=== PATIENT | male | born 1965 | race Caucasian/White ===

== ENCOUNTER 2021-07-23 03:37 | Inpatient (IN) | payer OTHER, SELFPAY ==
[~2021-07-23] VITALS: Ht 180.3 cm; Wt 129.7 kg
--- NOTE | 2021-07-23 03:39 | NUR ---
PT BROUGHT TO BED 11 VIA STARR FERNANDEZ
[2021-07-23 03:40] VITALS: BP 223/82
--- NOTE | 2021-07-23 03:40 | NUR ---
56 YO M BIBA WITH C/C OF SOB XT, WORSENING TODAY. PT SATING AT 95%RA. INCREASED WORK OF BREATHING OBSERVED. PT STATES HE MISSED DIALYSIS THIS MONDAY D/T HAVING A COUGH. SHUNT IS ON RIGHT UPPER ARM. DIALYSIS MON-MON-MON. PT STATES THE LAST TIME HE MISSED THE SAME THING HAPPENED AND FELT BETTER AFTER DIALYSIS. AT BEDSIDE ASSESSING PT. PT PLACED ON MONITOR AND IN GOWN. HX:RF AND HTN SURGERIES: GALLBLADDER, AMBULTATION OF LEFT FOOT BIG TOE
[2021-07-23] MEDS ORDERED: NITROGLYCERIN 50 MG/D5W PREMIX 250 ML IV ONE (03:45)
[2021-07-23] MEDS ORDERED: NITROGLYCERIN 0.4 MG TAB SL ONE (03:45)
[2021-07-23 04:06] VITALS: BP 186/106
[2021-07-23 04:09] LABS: BASOPHILS # (AUTO) 0.3 K/uL (0.00-0.22); EOSINOPHILS # (AUTO) 0.3 K/uL (0-0.4); EOSINOPHILS % (AUTO) 4.8 % (0.0-4.0); HEMATOCRIT 38.4 % (36-52); HEMOGLOBIN 12.8 g/dL (12.0-18.0); LYMPHOCYTES # (AUTO) 1.4 K/uL (2.0-11.5); LYMPHOCYTES % (AUTO) 24.1 % (20.5-51.1); MEAN CORPUSCULAR HEMOGLOBIN 32 pg (27-31); MEAN CORPUSCULAR HGB CONC 33 g/dL (33-37); MEAN CORPUSCULAR VOLUME 94.7 fL (80-94); MONOCYTES # (AUTO) 0.3 K/uL (0.8-1.0); NEUTROPHILS # (AUTO) 3.5 K/uL (1.8-7.7); NEUTROPHILS % (AUTO) 61.1 % (42.2-75.2); PLATELET COUNT (AUTO) 163 K/uL (140-450); RED BLOOD CELL COUNT(AUTO) 4.06 MIL/uL (4.20-6.10); WHITE BLOOD COUNT (AUTO) 5.8 K/uL (4.8-10.8)
--- NOTE | 2021-07-23 04:13 | NUR ---
PT PLACED ON NIV / f16 100% FOR INCR WOB + SOB PT APPEARS TO BE TOLERATING WELL AND SPO2 INCR TO 100% 5 MIN POST INITIATION BIPAP PLUGGED INTO RED OUTLET W/ ALARMS ON AND AUDIBLE WILL CONTINUE TO MONITOR
--- NOTE | 2021-07-23 04:22 | NUR ---
PT IS SITTING BACK IN BED. PT EXPRESSES RELIEF. STATES HE FEELS MUCH BETTER THAN WHEN HE CAME IN. RR DECRESED TO 19, WORK OF BREATHING ALSO DECREASED. PT MADE COMFORTABLE, GIVEN BLANKET. BED LOCKED IN LOWEST POSITION, SIDE RAILS X1.
--- NOTE | 2021-07-23 04:27 | NUR ---
PT UNABLE TO RECALL MANUFACTURING CLERK. STATES HE HAS DIALYSIS AT [facility].
[2021-07-23] MEDS ORDERED: ENALAPRILAT 2.5 MG/2 ML VIAL IVP ONE (04:35)
[2021-07-23 04:48] LABS: PROTHROMBIN TIME 10.7 secs (10.8-13.4)
[2021-07-23 04:51] LABS: ALBUMIN 3.4 g/dL (3.4-5.0); CARBON DIOXIDE 19.6 mmol/L (21-32); POTASSIUM 4.6 mmol/L (3.5-5.1); TOTAL BILIRUBIN 0.3 mg/dL (0.0-1.0)
--- NOTE | 2021-07-23 05:05 | NUR ---
PT IS SITTIG UP IN BED, PT STATES HE FEELS BETTER THAT WAY.
[2021-07-23 05:10] LABS: CREATININE 14.9 mg/dL (0.6-1.3)
[2021-07-23 05:23] VITALS: BP 120/6
--- NOTE | 2021-07-23 05:25 | NUR ---
BP 120/64 HR:71, NIRO DRIP D/C PER NICOLA VAZQUEZ. Addendum: 07/23/21 at 0526 by [facility] BP 120/64 HR:71, NITRO DRIP D/C PER NICOLA VAZQUEZ.
--- NOTE | 2021-07-23 05:27 | NUR ---
NIV WAS PLACED ON STDBY @ BEDSIDE
--- NOTE | 2021-07-23 05:39 | NUR ---
ELIJAH HENRY [phone]
--- NOTE | 2021-07-23 06:16 | NUR ---
UNABLE TO RECONCILE MEDICATION, PT DOES NOT REMEMBER MEDICATIONS.
--- NOTE | 2021-07-23 06:20 | NUR ---
PT TAKEN TO BED 10. Addendum: 07/23/21 at 0649 by [facility] 10A
[2021-07-23] MEDS ORDERED: ZOLPIDEM 10 MG TAB PO PRN (06:35)
[2021-07-23] MEDS ORDERED: MAG SULF 2000 MG/WATER PREMIX 50 ML IV PRN (06:35)
[2021-07-23] MEDS ORDERED: AZITHROMYCIN 250 MG TAB PO SCH (06:35)
[2021-07-23] MEDS ORDERED: DOCUSATE SODIUM 100 MG GELCAP PO PRN (06:35)
[2021-07-23] MEDS ORDERED: POTASSIUM CHLORIDE 10 MEQ TABER PO PRN (06:35)
[2021-07-23] MEDS ORDERED: MORPHINE SULFATE 2 MG/ML SYR IVP PRN (06:35)
[2021-07-23] MEDS ORDERED: ONDANSETRON 4 MG/2 ML VIAL IVP PRN (06:35)
[2021-07-23] MEDS ORDERED: LORazepam 2 MG/ML VIAL IVP PRN (06:35)
--- NOTE | 2021-07-23 06:40 | NUR ---
PT IS SITTING UP IN BED. VSS. PT IN STABLE CONDITION. ALL NEEDS MET AT THIS TIME.
--- NOTE | 2021-07-23 07:13 | NUR ---
PT HAD BM.
--- NOTE | 2021-07-23 07:21 | NUR ---
Pt report given to LYLE ACEVEDO. Transfer of care at this time.
--- NOTE | 2021-07-23 07:21 | NUR ---
REPORT RECEIVED FROM KOBY ALVARENGA FOR CONTINUITY OF CARE. PT IS A&OX4. ON ROOM AIR. IV SITE LT FOREARM 20GM, INTACT, PATENT, GOOD BLOOD RETURN. SKIN INTACT. SAFETY PRECAUTIONS IN PLACE. CALL LIGHT WITHIN IN REACH. WILL CONTINUE TO MONITOR
--- NOTE | 2021-07-23 08:03 | NUR ---
LAB AT BEDSIDE
--- NOTE | 2021-07-23 09:00 | NUR ---
PT EATING BREAKFAST TRAY
[2021-07-23] MEDS: VITAMIN D 400 IU TAB PO SCH (09:11)
[2021-07-23] MEDS: ASCORBIC ACID 500 MG TAB PO SCH (09:11)
[2021-07-23] MEDS: ZINC SULF 220 MG CAP PO SCH ×2 (09:11→21:07)
[2021-07-23] MEDS: NIFEdipine 60 MG TABER PO SCH (09:12)
--- NOTE | 2021-07-23 09:30 | NUR ---
PT USING BEDSIDE COMMODE
--- NOTE | 2021-07-23 10:18 | NUR ---
DR BROWN AT BEDSIDE EXAMINING PT
[2021-07-23] MEDS ORDERED: SEVE800T6 PO (10:39)
[2021-07-23] MEDS ORDERED: IBUP-2217 PO (10:39)
[2021-07-23] MEDS ORDERED: FURO40TA9 PO (10:39)
--- NOTE | 2021-07-23 12:18 | NUR ---
PATIENT HAS BEEN SCREENED AND CATEGORIZED MODERATE NUTRITION RISK. PATIENT WILL BE SEEN WITHIN 3-5 DAYS OF ADMISSION. AURELIO BILL RD
[2021-07-23] MEDS ORDERED: hydrALAZINE 25 MG TAB PO PRN (12:40)
--- NOTE | 2021-07-23 13:36 | NUR ---
C DIFF SPECIMEN COLLECTED. DROPPED OFF AT LAB WITH [facility]igating Cancer GUNNER MATE.
--- NOTE | 2021-07-23 13:42 | NUR ---
O2 SATURATION DROPPED TO 67%. PT PLACED ON 2L NASAL CANNULA. O2 SATURATION CURRENTLY 97%.
--- NOTE | 2021-07-23 17:05 | NUR ---
DC PLANNIN YRS OLD MALE PATIENT WAS ADMITTED FROM HOME WITH A DX OF RENAL FAILURE. PATIENT HAS A HX OF ESRD ON HD AND HTN. CXR SHOWED VIRAL PNEUMONIA AND CARDIOMEGALY. RAPID COVID TEST POSITIVE AND PCR PENDING. ON BIPAP SATING 100%. ADMINISTERED IVF, IV ABX AZITHROMYCIN AND ROCEPHIN AND COVID PROTOCOL. CONSULTED WITH PULMO, CARDIO NEPHRO AND CARDIO. DC PLAN TO GO OME WHEN STABLE CM TO FOLLOW Addendum: 07/26/21 at 7221 by Nahed Marcelo RN DC PLANNING: CALLED [facility] [phone] SPOKE WITH [address] HER DON IS NOT THER TO REVIEW IT. FAXED ALL PAPERWORK TO [phone] WILL FOLLOW UP TOMORROW. CM TO FOLLOW Addendum: 07/27/21 at 1420 by Nahed Marcelo RN DC PLANNING: CALLED [facility] SPOKE WITH BRIGETTE BLACKWELL STATED THEY DON'T HAVE ANY CHAIR TIME FOR NEW PATIENT, NOTIFIED DR DORI SULLIVAN SCRIP CLERK. Addendum: 07/27/21 at 1547 by Nahed Marcelo RN DC PLANNING: SPOKE WITH DR NATE MEADOWS STATED [facility] WHICH HE GOES TO WILL TAKE HIM BACK BUT HE WILL HAVE TO ATTEND THE LAST SHIFT OF THE DAY AND WEAR N95 FOR ENTIRE TIME. CALLED [facility] SPOKE WITH NUBIA NOTIFIED HER THAT PT IS COVID POSITIVE. SHE REQUESTED TO FAX ALL PAPERWORK. FAXED TO [phone]. CM TO FOLLOW Addendum: 07/27/21 at 1655 by Nahed Marcelo RN DC PLANNING FAXED THE HOME O2 ORDER TO [facility] CM TO FOLLOW
--- NOTE | 2021-07-23 17:15 | NUR ---
PT USING COMMODE
--- NOTE | 2021-07-23 19:27 | NUR ---
Pt report given to Cole ALVARENGA. Transfer of care at this time.
--- NOTE | 2021-07-24 06:13 | NUR ---
PT'S PULSOX DROPPED INTO THE 50s; PT WAS ADVISED NOT TO LAY FLAT AND TO REMAIN IN A SEATED OR SEMI FOWLERS POSITION TO KEEP PULSOX IN THE 90s.
--- NOTE | 2021-07-24 07:30 | NUR ---
GAVE TRANSFER REPORT TO TEJA ALVARENGA
--- NOTE | 2021-07-24 07:33 | NUR ---
REPORT RECIEVED FROM LYLE STANFORD FOR TRANSFER OF CARE
[2021-07-24] MEDS: NIFEdipine 60 MG TABER PO SCH (08:25)
[2021-07-24] MEDS: ECOTRIN 81 MG TABEC PO SCH (08:25)
[2021-07-24] MEDS: VITAMIN D 400 IU TAB PO SCH (08:25)
[2021-07-24] MEDS: ASCORBIC ACID 500 MG TAB PO SCH (08:26)
[2021-07-24] MEDS: ZINC SULF 220 MG CAP PO SCH ×2 (08:26→21:44)
[2021-07-24] MEDS: AZITHROMYCIN 250 MG TAB PO SCH (08:26)
--- NOTE | 2021-07-24 09:03 | NUR ---
PT PROVIDED WITH BREAKFAST TRAY BEDSIDE
[2021-07-24 09:07] LABS: BASOPHILS % (AUTO) 0.2 % (0.0-2.0); EOSINOPHILS % (AUTO) 0.1 % (0.0-4.0); HEMATOCRIT 35.4 % (36-52); HEMOGLOBIN 11.8 g/dL (12.0-18.0); LYMPHOCYTES % (AUTO) 23.6 % (20.5-51.1); MEAN CORPUSCULAR HEMOGLOBIN 31 pg (27-31); MEAN CORPUSCULAR HGB CONC 33 g/dL (33-37); MEAN CORPUSCULAR VOLUME 93.8 fL (80-94); MONOCYTES # (AUTO) 0.4 K/uL (0.8-1.0); MONOCYTES % (AUTO) 10.4 % (1.7-9.3); NEUTROPHILS # (AUTO) 2.7 K/uL (1.8-7.7); NEUTROPHILS % (AUTO) 65.7 % (42.2-75.2); PLATELET COUNT (AUTO) 153 K/uL (140-450); RED BLOOD CELL COUNT(AUTO) 3.77 MIL/uL (4.20-6.10); RED CELL DISTRIBUTION WIDTH 15.3 % (11.6-13.7); WHITE BLOOD COUNT (AUTO) 4.1 K/uL (4.8-10.8)
[2021-07-24 09:28] LABS: ANION GAP 25.5 (8-16); CARBON DIOXIDE 16.5 mmol/L (21-32)
[2021-07-24 09:36] LABS: CREATININE 16.8 mg/dL (0.6-1.3)
--- NOTE | 2021-07-24 10:03 | NUR ---
Patient appears to be resting comfortably in bed. Vital Signs within normal limits. Respirations even and unlabored.
--- NOTE | 2021-07-24 11:00 | NUR ---
DR. MEADOWS STOPPED BY AND EVALUATED PATIENT. PER MD DR. MEADOWS WILL REACH OUT TO DIALYSIS NURSE.
--- NOTE | 2021-07-24 12:41 | NUR ---
PT PROVIDED WITH LUNCH TRAY BEDSIDE
--- NOTE | 2021-07-24 14:05 | NUR ---
Patient appears to be resting comfortably in bed. Vital Signs within normal limits. Respirations even and unlabored.
--- NOTE | 2021-07-24 17:06 | NUR ---
MOVED TO ER BED 1
--- NOTE | 2021-07-24 18:05 | NUR ---
Patient appears to be resting comfortably in bed. Vital Signs within normal limits. Respirations even and unlabored.
--- NOTE | 2021-07-24 18:53 | NUR ---
DIAYSIS NURSE BEDSIDE WITH PATIENT
--- NOTE | 2021-07-24 19:20 | NUR ---
PT RECIEVING DIALYSIS AT THIS TIME. BASKET ASSEMBLER AT BEDSIDE.
--- NOTE | 2021-07-24 19:27 | NUR ---
Pt report given to LYLE BRUNNER. Transfer of care at this time.
--- NOTE | 2021-07-24 20:30 | NUR ---
PT DONE WITH DIALYSIS. ALERT AND ORIENTED X4. EQUAL RISE AND FALL OF THE CHEST. NO ACUTE DISTRESS NOTED. WILL CONTINUE TO MONITOR PT.
--- NOTE | 2021-07-24 21:30 | NUR ---
PT SITTING IN BED EATING DINNER. ALERT AND ORIENTED X4. EQUAL RISE AND FALL OF CHEST. NO ACUTE DISTRESS NOTED. WILL CONTINUE TO MONITOR PT.
--- NOTE | 2021-07-24 21:45 | NUR ---
PT USING BEDSIDE COMMODE.
--- NOTE | 2021-07-24 23:00 | NUR ---
PT LYING IN BED WITH EYES CLOSED, APPEARS TO BE SLEEPING. EQUAL RISE AND FALL OF THE CHEST. NO ACUTE DISTRESS NOTED. ALL VS ARE STABLE AT THIS TIME. WILL CONTINUE TO MONITOR PT.
--- NOTE | 2021-07-25 | NUR ---
PT LYING IN BED WITH EYES CLOSED, APPEARS TO BE SLEEPING. RN PROVIDED PT WITH WARM BLANKETS FOR COMFORT. EQUAL RISE AND FALL OF THE CHEST. NO ACUTE DISTRESS NOTED. ALL VS ARE STABLE AT THIS TIME. WILL CONTINUE TO MONITOR PT.
--- NOTE | 2021-07-25 02:17 | NUR ---
PT REQUESTED BED SIDE COMMODE. RN GAVE PT PERINEAL SUPPLIES.
--- NOTE | 2021-07-25 04:37 | NUR ---
PT LYING IN BED WITH EYES CLOSED, APPEARS TO BE SLEEPING AND RELAXED. EQUAL RISE AND FALL OF THE CHEST. NO ACUTE DISTRESS NOTED. ALL VS ARE STABLE AT THIS TIME. WILL CONTINUE TO MONITOR PT.
--- NOTE | 2021-07-25 07:18 | NUR ---
REPORT GIVEN TO LYLE STOLL TO ASSUME CARE OF PT.
--- NOTE | 2021-07-25 07:19 | NUR ---
REPORT RECEIVED FROM LYLE BRUNNER FOR TRANSFER OF CARE
[2021-07-25] MEDS: ACETAMINOPHEN 325 MG TAB PO PRN ×2 (08:19→23:06)
[2021-07-25] MEDS: VITAMIN D 400 IU TAB PO SCH (08:19)
[2021-07-25] MEDS: AZITHROMYCIN 250 MG TAB PO SCH (08:19)
[2021-07-25] MEDS: ASCORBIC ACID 500 MG TAB PO SCH (08:19)
[2021-07-25] MEDS: NIFEdipine 60 MG TABER PO SCH (08:19)
[2021-07-25] MEDS: ECOTRIN 81 MG TABEC PO SCH (08:19)
[2021-07-25] MEDS: ZINC SULF 220 MG CAP PO SCH ×2 (08:19→21:18)
--- NOTE | 2021-07-25 08:19 | NUR ---
PT CURRENTLY EATING BREAKFAST TRAY BEDSIDE
[2021-07-25 08:59] LABS: BASOPHILS % (AUTO) 0.3 % (0.0-2.0); EOSINOPHILS % (AUTO) 0.2 % (0.0-4.0); HEMATOCRIT 36.8 % (36-52); HEMOGLOBIN 12.4 g/dL (12.0-18.0); LYMPHOCYTES # (AUTO) 0.7 K/uL (2.0-11.5); LYMPHOCYTES % (AUTO) 16.1 % (20.5-51.1); MEAN CORPUSCULAR HEMOGLOBIN 31 pg (27-31); MEAN CORPUSCULAR HGB CONC 34 g/dL (33-37); MONOCYTES # (AUTO) 0.3 K/uL (0.8-1.0); MONOCYTES % (AUTO) 7.1 % (1.7-9.3); NEUTROPHILS # (AUTO) 3.2 K/uL (1.8-7.7); NEUTROPHILS % (AUTO) 76.3 % (42.2-75.2); PLATELET COUNT (AUTO) 166 K/uL (140-450); RED BLOOD CELL COUNT(AUTO) 3.96 MIL/uL (4.20-6.10); RED CELL DISTRIBUTION WIDTH 14.9 % (11.6-13.7); WHITE BLOOD COUNT (AUTO) 4.1 K/uL (4.8-10.8)
[2021-07-25 09:03] LABS: ANION GAP 22.4 (8-16); CARBON DIOXIDE 20.6 mmol/L (21-32)
[2021-07-25 09:40] LABS: CREATININE 13.3 mg/dL (0.6-1.3)
--- NOTE | 2021-07-25 10:07 | NUR ---
Patient appears to be resting comfortably in bed. Vital Signs within normal limits. Respirations even and unlabored.
--- NOTE | 2021-07-25 15:13 | NUR ---
Patient appears to be resting comfortably in bed. Vital Signs within normal limits. Respirations even and unlabored.
--- NOTE | 2021-07-25 19:29 | NUR ---
received report from Karo ALVARENGA for continuation of care.
--- NOTE | 2021-07-25 19:29 | NUR ---
Pt report given to LYLE MARTIN. Transfer of care at this time.
--- NOTE | 2021-07-25 19:42 | NUR ---
Patient appears to be resting comfortably in bed- high fowlers, awake, andspeaking with on the phone. Vital Signs within normal limits. Respirations even and unlabored. No signs of distress noted. patient on 2L NC. 10cc of NS pushed through left fa. Safety measures are in place, patient placed on telemetry monitor and will continue to monitor patient.
--- NOTE | 2021-07-25 19:42 | NUR ---
Note naeem in EDM - 07/25/21 at 2007 by LIGIA Patient appears to be resting comfortably in bed- high fowlers, awake, andspeaking with on the phone. Vital Signs within normal limits. Respirations even and unlabored.
--- NOTE | 2021-07-25 21:13 | NUR ---
prison teacher Maliha called about verification if dialysis will be done in the morning. verified there is not dialysis ordered for patient but Maliha ALVARENGA will take a look tomorrow.
--- NOTE | 2021-07-26 02:22 | NUR ---
Patient appears to be resting comfortably in bed- semi fowlers, and eyes closed. Vital Signs within normal limits. Respirations even and unlabored. No signs of distress noted. Safety measures in place, attached to monitor and will continue to monitor patient.
[2021-07-26] MEDS ORDERED: diphenhydrAMINE 50 MG/ML VIAL IVP ONE (05:35)
--- NOTE | 2021-07-26 06:00 | NUR ---
patient experiencing chills and would like to shower but denied a shower as it is not available on unit. patient then expressed wanting to go home and would like to talk to the admitting MD to have him be released.
--- NOTE | 2021-07-26 07:13 | NUR ---
Pt report given to Nandini ALVARENGA. Transfer of care at this time.
[2021-07-26 07:15] LABS: BASOPHILS % (AUTO) 0.4 % (0.0-2.0); HEMOGLOBIN 12.4 g/dL (12.0-18.0); LYMPHOCYTES # (AUTO) 0.8 K/uL (2.0-11.5); LYMPHOCYTES % (AUTO) 16.6 % (20.5-51.1); MEAN CORPUSCULAR HEMOGLOBIN 32 pg (27-31); MEAN CORPUSCULAR HGB CONC 34 g/dL (33-37); MEAN CORPUSCULAR VOLUME 93.7 fL (80-94); MONOCYTES # (AUTO) 0.5 K/uL (0.8-1.0); NEUTROPHILS # (AUTO) 3.3 K/uL (1.8-7.7); PLATELET COUNT (AUTO) 170 K/uL (140-450); RED BLOOD CELL COUNT(AUTO) 3.95 MIL/uL (4.20-6.10); WHITE BLOOD COUNT (AUTO) 4.6 K/uL (4.8-10.8)
[2021-07-26 07:24] LABS: ANION GAP 22.8 (8-16); CARBON DIOXIDE 21.7 mmol/L (21-32); POTASSIUM 4.5 mmol/L (3.5-5.1)
--- NOTE | 2021-07-26 07:50 | NUR ---
Patient appears to be resting comfortably in bed. Vital Signs within normal limits. Respirations even and unlabored. A/V shunt with +B/T. IV WNL, SL. All needs met, safety measures in place. Call light in reach. VSS. Able to make all needs known.
[2021-07-26 08:02] LABS: CREATININE 15.3 mg/dL (0.6-1.3)
[2021-07-26] MEDS: NIFEdipine 60 MG TABER PO SCH (09:00)
--- NOTE | 2021-07-26 09:13 | NUR ---
Patient will be admitted to care of Dr Gonzalez. Admited to Tele. Will go to room 126B. Belongings list completed. Report to Aniya ALVARENGA. Cell phone and environmental engineer scientist endorsed to Aniya.
[2021-07-26 10:04] VITALS: BP 146/89
--- NOTE | 2021-07-26 10:05 | NUR ---
PT BROUGHT IN BY REBECCA FROM ED IN STABLE CONDITION. PT IN 5L NC WITH LEFT FOREARM 20G SALINE LOCK. PT HAS RIGHT ARM ARM AV SHUNT. SKIN INTACT. SOB NOTED. PT REPORTS FEELING BETTER THAN YESTERDAY. LUNG SOUNDS DIMINISHED. ALL BELONGINGS AT BEDSIDE. CALL LIGHT WITHIN REACH. WILL CONTINUE TO MONITOR.
[2021-07-26] MEDS: ECOTRIN 81 MG TABEC PO SCH (10:28)
[2021-07-26] MEDS: AZITHROMYCIN 250 MG TAB PO SCH (10:28)
[2021-07-26] MEDS: ASCORBIC ACID 500 MG TAB PO SCH (10:28)
[2021-07-26] MEDS: ZINC SULF 220 MG CAP PO SCH ×2 (10:28→21:32)
[2021-07-26] MEDS: VITAMIN D 400 IU TAB PO SCH (10:29)
--- NOTE | 2021-07-26 11:25 | NUR ---
BOYD SIMI CALLED AT 1058 DUE TO PT BECOMING UNRESPONSIVE. PRIOR TO PT BECOMING UNRESPONSIVE, ADMISSION QUESTIONS WERE BEING COVERED, PT WAS TALKING AND DENIED PAIN OR SOB. PT STARTED COUGHING, FACE BECAME RED, AND PT FELL BACKWARDS FLAT ONTO THE BED, BECAME UNRESPONSIVE EVEN WITH STERNUM RUB. BOYD BELCHER WAS THEN CALLED. ROUGHLY 15 SECONDS LATER, PT WOKE UP AND STATED "I AM SORRY, I AM OKAY". RT AND DR CAME TO BEDSIDE, EXPLAINED WHAT HAPPENED. PT ABLE TO SIT UP AND TALK. PT SHOWING SINUS RHYTHM ON TELE, VITALS OBTAINED AND ARE STABLE. PT STATED THAT THIS HAS HAPPENED A FEW TIMES IN THE PAST, THAT WHEN HE STARTS COUGHING HE WILL RANDOMLY PASS OUT.
--- NOTE | 2021-07-26 13:48 | NUR ---
PT REPORTS ALL NEEDS ARE MET AND IS FEELING BETTER. PT ON 5L NC WITH SLIGHT SOB NOTED. VITAL SIGNS STABLE
[2021-07-26 16:00] VITALS: BP 147/67
--- NOTE | 2021-07-26 16:38 | NUR ---
HEMODIALYSIS NURSE AT BEDSIDE.
--- NOTE | 2021-07-26 18:07 | NUR ---
PT STABLE WITH HEMODIALYSIS NURSE AT BEDSIDE, ALL NEEDS HAVE BEEN MET THROUGHOUT THE SHIFT. PT WILL BE ENDORSED TO MEDICARE SALES EXECUTIVE NURSE FOR CONTINUITY OF CARE.
--- NOTE | 2021-07-26 19:40 | NUR ---
RECEIVED PATIENT REPORT FROM AM SHIFT NURSE. PATIENT IN BED AWAKE, ALERT AND VERBALLY RESPONSIVE. ABLE TO MAKE NEEDS KNOWN. HOB IN SEMI-FOWLERS POSITION. ON 5L O2 VIA N/C. NOT IN DISTRESS. DENIES ANY PAIN OR DISCOMFORT AT THIS TIME. ALL SAFETY MEASURES IN PLACE. CALL LIGHT WITHIN REACH. WILL CONTINUE WITH THE CURRENT PLAN OF CARE.
[2021-07-26 20:00] VITALS: BP 119/76
--- NOTE | 2021-07-26 20:00 | NUR ---
Patient's Plan of Care was discussed and reviewed with ORNAMENT STAPLER: RAF NELSON
--- NOTE | 2021-07-26 21:35 | NUR ---
ADMINISTERED SCHEDULE MEDICATIONS PER MD ORDER. TOLERATED WELL. NO ASE NOTED. ALL SAFETY MEASURES IN PLACE. CALL LIGHT WITHIN REACH. WILL CONTINUE TO MONITOR.
--- NOTE | 2021-07-26 23:55 | NUR ---
CHECKED ON PATIENT. PATIENT ASLEEP WITH HOB ELEVATED. VISIBLE CHEST RISING AND FALLING. ALL SAFETY MEASURES IN PLACE. CALL LIGHT WITHIN REACH. WILL CONTINUE TO MONITOR.
[2021-07-27] VITALS: BP 142/88
--- NOTE | 2021-07-27 01:01 | NUR ---
ANSWERED PATIENT CALL LIGHT. PATIENT REQUESTING FOR WARM BLANKET. WARM BLANKET PROVIDED. CALL LIGHT WITHIN REACH. WILL CONTINUE TO MONITOR.
--- NOTE | 2021-07-27 03:25 | NUR ---
CHECKED ON PATIENT. PATIENT SLEEPING. VISIBLE CHEST RISING AND FALLING. NO SOB NOTED. ALL SAFETY MEASURES IN PLACE. CALL LIGHT WITHIN REACH. WILL CONTINUE TO MONITOR.
[2021-07-27 04:00] VITALS: BP 199/85
[2021-07-27 06:55] LABS: BASOPHILS % (AUTO) 0.2 % (0.0-2.0); HEMOGLOBIN 12.4 g/dL (12.0-18.0); LYMPHOCYTES # (AUTO) 0.6 K/uL (2.0-11.5); LYMPHOCYTES % (AUTO) 16.6 % (20.5-51.1); MEAN CORPUSCULAR HEMOGLOBIN 31 pg (27-31); MEAN CORPUSCULAR HGB CONC 34 g/dL (33-37); MEAN CORPUSCULAR VOLUME 93.2 fL (80-94); MONOCYTES # (AUTO) 0.5 K/uL (0.8-1.0); MONOCYTES % (AUTO) 13.9 % (1.7-9.3); NEUTROPHILS # (AUTO) 2.6 K/uL (1.8-7.7); NEUTROPHILS % (AUTO) 69.3 % (42.2-75.2); PLATELET COUNT (AUTO) 152 K/uL (140-450); RED BLOOD CELL COUNT(AUTO) 3.97 MIL/uL (4.20-6.10); RED CELL DISTRIBUTION WIDTH 15.1 % (11.6-13.7); WHITE BLOOD COUNT (AUTO) 3.8 K/uL (4.8-10.8)
[2021-07-27 07:22] LABS: ANION GAP 19.2 (8-16); CARBON DIOXIDE 22.4 mmol/L (21-32); POTASSIUM 4.6 mmol/L (3.5-5.1)
[2021-07-27 07:24] LABS: CREATININE 11.9 mg/dL (0.6-1.3)
--- NOTE | 2021-07-27 07:25 | NUR ---
ENDORSED PATIENT REPORT TO AM SHIFT NURSE FOR CONTINUITY OF CARE. PATIENT IS STABLE.
--- NOTE | 2021-07-27 07:27 | NUR ---
RECEIVED BEDSIDE REPORT FROM TEACHER RESOURCE PT IS AWAKE, NO S/S OF DISTRESS. O2 NC AT 5L SATING AT 97% BREATHING IS EVEN AND UNLABORED. IV SL. ALL SAFETY MEASURES IN PLACE. CALL LIGHT WITHIN REACH. SKIN INTACT. PT IS STABLE.
[2021-07-27 08:00] VITALS: BP 149/70
[2021-07-27] MEDS: NIFEdipine 60 MG TABER PO SCH (09:46)
[2021-07-27] MEDS: ECOTRIN 81 MG TABEC PO SCH (09:46)
[2021-07-27] MEDS: ASCORBIC ACID 500 MG TAB PO SCH (09:46)
[2021-07-27] MEDS: VITAMIN D 400 IU TAB PO SCH (09:46)
[2021-07-27] MEDS: AZITHROMYCIN 250 MG TAB PO SCH (09:47)
[2021-07-27] MEDS: ZINC SULF 220 MG CAP PO SCH ×2 (09:47→21:24)
--- NOTE | 2021-07-27 10:00 | NUR ---
DIALYSIS WILL BE TOMORROW. PT IS RESTING, NO S/S OF DISTRESS. O2 NC AT 5L SATING AT 95% BREATHING IS EVEN AND UNLABORED. IV SL. ALL SAFETY MEASURES IN PLACE. CALL LIGHT WITHIN REACH. SKIN INTACT. PT IS STABLE.
[2021-07-27 12:00] VITALS: BP 148/55
--- NOTE | 2021-07-27 12:00 | NUR ---
PT IS AWAKE, NO S/S OF DISTRESS. O2 NC AT 5L SATING AT 95% BREATHING IS EVEN AND UNLABORED. IV SL. ALL SAFETY MEASURES IN PLACE. CALL LIGHT WITHIN REACH. SKIN INTACT. PT IS STABLE.
--- NOTE | 2021-07-27 12:16 | NUR ---
07/27/21 RD INITIAL ASSESSMENT COMPLETED PLEASE REFER TO NUTRITION ASSESSMENT UNDER CARE ACTIVITY FOR ESTIMATED NUTRITIONAL NEEDS. 1. CONTINUE RENAL DIET TOLERATED 2. RECOMMEND NEPRO BID PER PROTOCOL -DISCONTINUE WHEN PO INTAKE IS ABOVE 75% 3. RD TO FOLLOW-UP 2-3 DAYS, HIGH RISK (ELEVATED D/T POOR PO INTAKE) AURELIO BILL, RD
--- NOTE | 2021-07-27 14:00 | NUR ---
PT IS AWAKE, NO S/S OF DISTRESS. O2 NC AT 5L SATING AT 96% BREATHING IS EVEN AND UNLABORED. IV SL. ALL SAFETY MEASURES IN PLACE. CALL LIGHT WITHIN REACH. SKIN INTACT. PT IS STABLE.
[2021-07-27 16:00] VITALS: BP 115/66
--- NOTE | 2021-07-27 17:00 | NUR ---
PT IS ON 5L NC O2 SATING AT 96. PT STATES HE TAKES OFF HIS O2 ND FEELS GOOD. PT TEACHING ABOUT IMPORTANCE OF O2 SINCE HE IS SATING LOWER 90S AT TIMES. PT SAYS HE UNDERSTANDS.
--- NOTE | 2021-07-27 19:05 | NUR ---
ENDORSED TO DECORATIVE GREENS CUTTER NURSE FOR CONTINUITY OF CARE. POC DISCUSSED.
[2021-07-27 20:00] VITALS: BP 106/53
--- NOTE | 2021-07-27 20:00 | NUR ---
Patient received from AM shift nurse. Patient is AA&Ox4 able to make needs known denies chest pain or SOB. Chest rise is even and unlabored on 5L NC. Normal hear sounds present on tele monitoring. Active bowel sounds on palpation, no distention noted and denies pain with palpation. PIV present on LFA that is patent with no s/s of infiltration noted. Patient has call light within reach, bed is locked and in the lowest position with bed rails up. Will continue to monitor throughout the shift.
[2021-07-28] VITALS: BP 149/75
--- NOTE | 2021-07-28 | NUR ---
ROUNDS: Patient is sleeping no s/s of distress at this time. Patient reports discomfort from hiccups. Patient denies pain. Chest rise is even and unlabored. Call light is within reach, bed is locked, in the lowest position with bed rails up. Will continue to monitor.
[2021-07-28 04:00] VITALS: BP 162/74
[2021-07-28 04:45] VITALS: BP 153/78
--- NOTE | 2021-07-28 06:50 | NUR ---
Patient is currently in bed sleeping no s/s of distress is noted at this time. Patient is still experiencing some discomfort due to hiccups but is able to rest. Patient denies chest pain of SOB. Chest rise is even and unlabored. Call light is within reach, bed is locked and in the lowest position. Will differ further care to AM shift for continuity of care.
--- NOTE | 2021-07-28 07:10 | NUR ---
RECEIVED PATIENT FROM CODING MACHINE OPERATOR NURSE FOR CONTINUITY OF CARE. PATIENT IS A/A/O X4. ON TELE MONITOR. RESPIRATORY EVEN AND UNLABORED, ON 5L OXYGEN VIA NC. NO SIGN OF DISTRESS NOTED. SKIN WARM, DRY, NON DIAPHORETIC. IV ON LEFT FA 20G, INTACT AND PATENT, SALINE LOCK. AV SHUNT ON LEFT UPPER ARM. PATIENT DENIES ANY PAIN OR DISCOMFORT. ABLE TO MAKE NEED KNOWN. PLAN OF CARE DISCUSSED, PATIENT VERBALIZED UNDERSTANDING. PRECAUTION IN PLACE. CALL LIGHT WITHIN REACH. WILL CONTINUE TO MONITOR.
[2021-07-28 07:14] LABS: BASOPHILS % (AUTO) 0.1 % (0.0-2.0); EOSINOPHILS % (AUTO) 0.1 % (0.0-4.0); HEMATOCRIT 35.5 % (36-52); HEMOGLOBIN 11.9 g/dL (12.0-18.0); LYMPHOCYTES # (AUTO) 0.9 K/uL (2.0-11.5); LYMPHOCYTES % (AUTO) 19.7 % (20.5-51.1); MEAN CORPUSCULAR HEMOGLOBIN 31 pg (27-31); MEAN CORPUSCULAR HGB CONC 34 g/dL (33-37); MEAN CORPUSCULAR VOLUME 93.3 fL (80-94); MONOCYTES # (AUTO) 0.4 K/uL (0.8-1.0); MONOCYTES % (AUTO) 9.7 % (1.7-9.3); NEUTROPHILS # (AUTO) 3.1 K/uL (1.8-7.7); NEUTROPHILS % (AUTO) 70.4 % (42.2-75.2); PLATELET COUNT (AUTO) 150 K/uL (140-450); RED BLOOD CELL COUNT(AUTO) 3.81 MIL/uL (4.20-6.10); RED CELL DISTRIBUTION WIDTH 14.7 % (11.6-13.7); WHITE BLOOD COUNT (AUTO) 4.4 K/uL (4.8-10.8)
[2021-07-28 07:38] LABS: ANION GAP 21.1 (8-16); CARBON DIOXIDE 20.7 mmol/L (21-32); POTASSIUM 4.8 mmol/L (3.5-5.1)
[2021-07-28 08:00] VITALS: BP 135/74
[2021-07-28] MEDS: ZINC SULF 220 MG CAP PO SCH (08:15)
[2021-07-28] MEDS: ASCORBIC ACID 500 MG TAB PO SCH (08:15)
[2021-07-28] MEDS: ECOTRIN 81 MG TABEC PO SCH (08:15)
--- NOTE | 2021-07-28 08:15 | NUR ---
SCHEDULE MEDICATIONS GIVEN WITH EDUCATION, PATIENT VERBALIZED UNDERSTANDING. BP 140/74, HR 86, PATIENT TOLERATED WELL. NO SIGN OF DISTRESS NOTED. PRECAUTION IN PLACE. CALL LIGHT WITHIN REACH. WILL CONTINUE TO MONITOR.
[2021-07-28] MEDS: VITAMIN D 400 IU TAB PO SCH (08:16)
[2021-07-28] MEDS: NIFEdipine 60 MG TABER PO SCH (08:17)
[2021-07-28 08:20] LABS: CREATININE 14.2 mg/dL (0.6-1.3)
[2021-07-28] MEDS ORDERED: LOSARTAN 50 MG TAB PO SCH (09:00)
--- NOTE | 2021-07-28 10:40 | NUR ---
PATIENT IS ON HD, HD NURSE AT BEDSIDE. PT IS STABLE. NO SIGN OF DISTRESS NOTED. PRECAUTION IN PLACE. CALL LIGHT WITHIN REACH. WILL CONTINUE TO MONITOR.
[2021-07-28] MEDS ORDERED: VITD400 PO (11:00)
[2021-07-28] MEDS ORDERED: ZINC220C29 PO (11:00)
[2021-07-28] MEDS ORDERED: VITC500 PO (11:00)
[2021-07-28] MEDS ORDERED: NIFE60TA39 PO (11:00)
[2021-07-28] MEDS ORDERED: LOSA50TA1 PO (11:00)
[2021-07-28] MEDS ORDERED: ASPI-1856 PO (11:00)
[2021-07-28] MEDS ORDERED: DEXA6TAB1 PO (11:00)
[2021-07-28 12:00] VITALS: BP 121/49
--- NOTE | 2021-07-28 12:00 | NUR ---
ATTEMPTED TO SEE PATIENT FOR PHYSICAL THERAPY TREATMENT HOWEVER PATIENT UNDERGOING DIALYSIS TREATMENT AT THIS TIME. WILL FOLLOW UP TOMORROW IF APPROPRIATE.
--- NOTE | 2021-07-28 12:20 | NUR ---
PATIENT FINISHED HD. PATIENT IS STABLE, RESTING IN BED, NO SIGN OF DISTRESS NOTED. PRECAUTION IN PLACE. CALL LIGHT WITHIN REACH. WILL CONTINUE TO MONITOR.
--- NOTE | 2021-07-28 14:23 | NUR ---
PATIENT IS RESTING IN BED, NO SIGN OF DISTRESS NOTED. PRECAUTION IN PLACE. CALL LIGHT WITHIN REACH. WILL CONTINUE TO MONITOR.
[2021-07-28 16:00] VITALS: BP 121/75
--- NOTE | 2021-07-28 16:30 | NUR ---
PATIENT IS RESTING IN BED, NO SIGN OF DISTRESS NOTED. PRECAUTION IN PLACE. CALL LIGHT WITHIN REACH. WILL CONTINUE TO MONITOR.
--- NOTE | 2021-07-28 17:55 | NUR ---
HIS , ELIJAH, CALLED TO UPDATE PATIENT'S STATUS. ALL QUESTIONS WERE ANSWERED.
--- NOTE | 2021-07-28 18:28 | NUR ---
DISCHARGE EDUCATION GIVEN, PATIENT VERBALIZED UNDERSTANDING. HANDOUT GIVEN. IV REMOVED, BLEEDING CONTROL. ID BAND REMOVED. PATIENT IS STABLE. A/A/O X4. RESPIRATORY EVEN AND UNLABORED, ON 5L OXYGEN. BELONGING RETURN.
== END 2021-07-28 18:45 | disposition home or self-care (01) | DRG 177 ==
LOC: MED 03:37 → MMU 05:52
PROVIDERS: ADMIT General Practice; ATTEND General Practice
PROC: 5A1D70Z Performance of Urinary Filtration, Intermittent, Less than 6 Hours Per Day (ICD-10-PCS; principal; 2021-07-23)
PROC: 5A09357 Assistance with Respiratory Ventilation, Less than 24 Consecutive Hours, Continuous Positive Airway Pressure (ICD-10-PCS; 2021-07-23)
PROC: 5A1D70Z Performance of Urinary Filtration, Intermittent, Less than 6 Hours Per Day (ICD-10-PCS; 2021-07-25)
PROC: 5A1D70Z Performance of Urinary Filtration, Intermittent, Less than 6 Hours Per Day (ICD-10-PCS; 2021-07-27)
DX: U07.1 COVID-19 (principal); J12.82 Pneumonia due to coronavirus disease 2019; N17.0 Acute kidney failure with tubular necrosis; J96.01 Acute respiratory failure with hypoxia; N18.6 End stage renal disease; I21.A1 Myocardial infarction type 2; I50.43 Acute on chronic combined systolic (congestive) and diastolic (congestive) heart failure; I13.2 Hypertensive heart and chronic kidney disease with heart failure and with stage 5 chronic kidney disease, or end stage renal disease; E11.22 Type 2 diabetes mellitus with diabetic chronic kidney disease; I16.0 Hypertensive urgency; D63.8 Anemia in other chronic diseases classified elsewhere; Z86.73 Personal history of transient ischemic attack (TIA), and cerebral infarction without residual deficits; Z88.1 Allergy status to other antibiotic agents; Z90.49 Acquired absence of other specified parts of digestive tract; Z99.2 Dependence on renal dialysis
CPT/HCPCS: 36415; 70450; 71045; 80048; 80053; 83735; 83880; 84484; 85025; 85379; 85610; 85651; 85730; 86140; 86886; 86900; 86901; 87070; 93005; 96374; 97163-GP; 99291; J1644; J2060; J2270; J2405; J3490; U0003